=== PATIENT | female | born 1950 | race American Indian/Alaskan Native ===

== ENCOUNTER 2019-03-29 13:05 | Outpatient (CLI) | payer MEDICARE ==
--- NOTE | 2019-03-29 16:31 | Mammography Report ---
STEREOTACTIC NEEDLE BIOPSY WITH CLIP PLACEMENT LEFT BREAST INDICATION: LEFT BREAST CALCIFICATIONS. History of right breast cancer. COMPARISON: Recent ELISABET mammogram. FINDINGS: A timeout was called and informed consent was obtained. The skin was marked. The patient was placed p maura on the stereotactic biopsy table and the skin was cleansed with betadine. Using stereotactic guidance, sterile technique and 1% lidocaine for skin anesthesia and 2% lidocaine with epinephrine for deep anesthesia, 8-gauge Mammotome vacuum-assisted biopsy was performed from a C C from below approach. Samples were obtained around the clock face several times but only on tiny harshad cification was identified on specimen radiograph. There was moderate hemorrhage (50 cc) during the pr ocedure and a moderate size hematoma was observed when retargeting was performed.. A localizer clip w as placed at the biopsy site and the probe was removed. Hemostasis was achieved with pressure to the site and a an Ajay bandage wrap were applied. The patient tolerated the procedure well. A post procedure mammogram demonstrated removal of some of the calcifications. She left the [facility] in good condition with a cold pack applied to the biopsy site and she was given instructions for [facility] care and follow-up. IMPRESSION: 1. Left stereotactic breast biopsy with minimal calcifications obtained. Signer Name: Girish Coffman MD Signed: 03/29/2019 4:27 PM Workstation Name: [id number]
== END 2019-03-29 13:06 | disposition home or self-care (01) ==
LOC: SPVWC 13:05
PROVIDERS: ATTEND Surgery
DX: R92.1 Mammographic calcification found on diagnostic imaging of breast (principal); R92.8 Other abnormal and inconclusive findings on diagnostic imaging of breast; Z85.3 Personal history of malignant neoplasm of breast
CPT/HCPCS: 19081; 88305; 88341; 88342; A4648

== ENCOUNTER 2019-04-19 11:03 | Outpatient (CLI) | payer MEDICARE ==
--- NOTE | 2019-04-19 14:02 | Magnetic Resonance Report ---
Breast MRI INDICATION: Recently diagnosed left breast DCIS. Patient is status post right mastectomy. COMPARISON: 03/29/2019, 02/26/2019, 02/24/2018. FINDINGS: Multiplanar multisequence MR images of the left breast were obtained before and after the i ntravenous administration of 19 mL of MultiHance contrast agent. Imaging post processing and analysis was performed on a separate computer workstation. Patient is status post right mastectomy. No abnormal enhancement is identified within the right chest . LEFT BREAST: There is a 4 x 3.9 x 6.1 cm hematoma within the slightly inferior left central breast. T his is at the site of recent stereotactic biopsy which reportedly revealed DCIS. Of note, a few resid ual calcifications can be noted anterior to the biopsy marker on the post procedure mammogram. There is mild rim enhancement surrounding the hematoma which is consistent with postbiopsy changes. No thic k nodular enhancement or other abnormal enhancement to suggest additional sites of malignancy. No abnormal axillary or internal mammary lymph nodes. A port is noted within the left superior medial chest. IMPRESSION: There is a 6.1 cm hematoma within the left slightly inferior central breast at the site of recent barbara reotactic biopsy which revealed DCIS. No additional sites of enhancement to suggest the presence of f urther extent of disease within the left breast. Of note, a few residual calcifications slightly ante rior to the biopsy marker can be seen on the poststereotactic biopsy images and these would serve as a good target for mammographic localization should lumpectomy be considered. BIRADS 6: Known biopsy proven malignancy. Signer Name: Alex Miller MD Signed: 04/19/2019 1:58 PM Workstation Name: [id number]
== END 2019-04-19 11:04 | disposition home or self-care (01) ==
LOC: SPVIMAG 11:03
PROVIDERS: ATTEND Surgery
DX: C50.412 Malignant neoplasm of upper-outer quadrant of left female breast (principal); N64.89 Other specified disorders of breast
CPT/HCPCS: A9577; C8908; 77049

== ENCOUNTER 2019-06-11 06:10 | Day surgery (SDC) | payer MEDICARE ==
[~2019-06-11 06:10] MED LIST: ceFAZolin/Water 2 GM/20 ML 2 GM/20 ML SYRINGE IV NR
[2019-06-11] MEDS ORDERED: LIDOCAINE (1%) 10 MG/1 ML VIAL 20 ML MDV ONE (07:39)
--- NOTE | 2019-06-11 07:39 | Anesthesia Day of Surgery ---
Anesthesia Day of Surgery - Day of Surgery Patient Examined: Yes Patient H&P Reviewed: Yes Patient is NPO: Yes
--- NOTE | 2019-06-11 07:39 | Anesthesia Consultation ---
Anesthesia Consult and Med Hx Date of service: 06/11/19 - Airway Anesthetic Teeth Evaluation: Good ROM Head & Neck: Adequate Mental/Hyoid Distance: Adequate Mallampati Class: Class II Intubation Access Assessment: Good - Pulmonary Exam CTA: Yes - Cardiac Exam Cardiac Exam: RRR - Pre-Operative Health Status ASA Pre-Surgery Classification: ASA3 Proposed Anesthetic Plan: General - Pulmonary Hx Smoking: Yes (FROM AGE 18-33) Hx Sleep Apnea: (HIGH RISK) - Cardiovascular System Hx Hypertension: Yes (OVER 20YRS) - Central Nervous System Hx Psychiatric Problems: No - Endocrine Hx Hypothyroidism: Yes - Other Systems Hx Alcohol Use: Yes (OCCA WINE) Hx Substance Use: No Hx Cancer: Yes Hx Obesity: Yes (BMI 35)
[2019-06-11] MEDS ORDERED: HYDROmorphone 1 MG/1 ML INJ IV PRN (07:40)
[2019-06-11] MEDS ORDERED: FAMOTIDINE 20 MG TAB PO NR (08:00)
[2019-06-11] MEDS ORDERED: MIDAZOLAM 2 MG/2 ML INJ IV NR (08:00)
[2019-06-11] MEDS ORDERED: LACTATED RINGERS 1,000 ML IV SCH (08:00)
[2019-06-11] MEDS ORDERED: fentaNYL 100 MCG/2 ML INJ ONE ×2 (09:06→11:54)
[2019-06-11] MEDS ORDERED: propofoL 200 MG/20 ML VIAL IV ONE (09:06)
[2019-06-11] MEDS ORDERED: ONDANSETRON 4 MG/2 ML INJ ONE (09:13)
[2019-06-11] MEDS ORDERED: LIDOCAINE PF 100 MG/5 ML (CARDIAC SYRINGE) IV ONE (09:13)
[2019-06-11] MEDS ORDERED: dexAMETHasone 20 MG/5 ML VIAL ONE (09:13)
[2019-06-11] MEDS ORDERED: WATER FOR IRRIG STERILE 1,500 ML BOTTLE IR ONE (09:52)
[2019-06-11] MEDS ORDERED: LIDOCAINE (1%) 10 MG/1 ML VIAL 20 ML MDV INFILTRATI ONE (09:52)
[2019-06-11] MEDS ORDERED: BUPIVACAINE/PF (0.25%) 2.5 MG/ML 30 ML VIAL INFILTRATI ONE (09:52)
--- NOTE | 2019-06-11 12:14 | Operative Report ---
Operative Report Operative Report: June 11, 2019 Preoperative diagnosis: Left breast cancer of the central breast/lower inner quadrant Postoperative diagnosis: Same Procedure: Left needle localization partial mastectomy of the central/lower inner quadrant Surgeon: Vania Georges MD [employer] Research Technician: Dr. Pompa Anesthesia: General Findings: Left wire, microcalcifications and clip present within radiograph specimen Complications: None EBL: Minimal Disposition: PACU in good condition Indications for operative procedure: This is a 68 year old lady with newly diagnosed left breast cancer of central/lower inner quadrant, Stage 0 [id number]. Recommendations were to proceed with breast conservation. She has a personal history of Stage III right breast cancer diagnosed over 15 years ago. She understands the role of adjuvant radiation therapy. She wished to proceed with the above procedure. Procedure in detail: The patient was taken to radiology for wire placement for localization of known area of cancer. Patient was then taken to the operating room. Gen. anesthesia was administered. Left breast and axilla were prepped and draped in the normal sterile operative fashion. The wire was identified. Patient with palpable hematoma from stereotactic biopsy around 6/7:00 position of 3 cm and wire and calcifications medial and posterior. Timeout was performed. Attention was taken towards the left breast. A medial NAC breast incision was made with a 15 blade knife and dissection taken down to subcutaneous tissues. First began raising of the superior flap with removal of the wire that was located posteriorly from the skin with dissection taken down to the pectoralis muscle, followed by raising of the inferior flap, medial flap and lateral flap with all flaps taken down to the pectoralis muscle with area of excision encompassing hematoma. The breast area of concern was appropriately removed posteriorly from the pectoralis muscle with the aid of the Bovie cautery. Generalized oozing from breast tissues was noted. The wire was not encountered. Specimen was marked and then sent to pathology and radiology; radiograph specim en with wire, microcalicifications and clip present. Breast cavity was irrigated and hemostasis was obtained. The posterior deep breast tissues were approximated and closed using interrupted 3-0 Vicryl. The subcutaneous tissues were approximated and closed using interrupted 3-0 Vicryl followed by closing of the skin with a running 4-0 Monocryl and skin affix. The patient tolerated surgery very well and she was awaken from anesthesia without any complication and transported to PACU in good condition.
--- NOTE | 2019-06-11 12:26 | Short Stay Summary ---
Short Stay Documentation Date of service: 06/11/19 - History H&P: obtained from office - Allergies and Medications Current Medications: Allergies sulfamethoxazole [From Bactrim] Allergy (Verified 06/08/19 12:21) Itching trimethoprim [From Bactrim] Allergy (Verified 06/08/19 12:21) Itching Home Medications Medication Instructions Recorded Confirmed Last Taken Type Calcium Carbonate [Calcium 600MG 600 mg PO DAILY 06/08/19 06/08/19 Unknown History TAB] Cyanocobalamin (Vitamin B-12) 500 mcg PO DAILY 06/08/19 06/08/19 Unknown History [Vitamin B-12] Ergocalciferol [Vitamin D2] 1 cap PO QWEEK 06/08/19 06/08/19 Unknown History Levothyroxine Sodium [Synthroid] 175 mcg PO DAILY 06/08/19 06/08/19 Unknown History NIFEdipine [Adalat cc] 90 mg PO DAILY 06/08/19 06/08/19 Unknown History Pravastatin [Pravachol] 40 mg PO QHS 06/08/19 06/08/19 Unknown History HYDROcodone/APAP 5-325 [[place] 1 each PO Q6HR PRN #12 tablet 06/11/19 Unknown Rx 5/325] Active Medications Famotidine (Pepcid) 20 mg PO PREOP NR Stop: 06/11/19 13:00 Hydromorphone HCl (Dilaudid) 0.5 mg IV Q10MIN PRN PRN Reason: Pain , Severe (7-10) Stop: 06/11/19 22:00 Cefazolin Sodium (Ancef/Sterile Water 2 Gm/20 Ml) 2 gm in 20 mls @ 80 mls/hr IV PREOP NR; Protocol Stop: 06/11/19 23:59 Lactated Ringer's (Lactated Ringers) 1,000 mls @ 100 mls/hr IV DIRECT QUIQUE Midazolam HCl (Versed) 2 mg IV PREOP NR Stop: 06/11/19 23:59 - Brief post op/procedure progress note Date of procedure: 06/11/19 Pre-op diagnosis: Left breast cancer Post-op diagnosis: same Procedure: Left needle localization partial mastectomy Anesthesia: GETA Findings: Wire, clip and microcalcifications present Surgeon: ZIA ACKERMAN Estimated blood loss: 50-100ml Pathology: list (partial mastecteomy) Specimen disposition: to lab Condition: stable - Disposition Condition at discharge: Good Disposition: DC-01 TO HOME OR SELFCARE Short Stay Discharge Plan Activity: other (no heavy lifting) Diet: regular Wound: keep clean and dry (may shower in 48 hours) Follow up with: HYUN KANG MD [Primary Care Provider] - 7 Days ZIA ACKERMAN MD [Staff Physician] - 7 Days Prescriptions: HYDROcodone/APAP 5-325 [[place] 5/325] 1 each PO Q6HR PRN #12 tablet PRN Reason: Pain
--- NOTE | 2019-06-11 12:48 | Post Anesthesia Evaluation ---
- Post Anesthesia Evaluation Patient Participated: Yes Airway Patent: Yes Stable Respiratory Function: Yes Nausea/Vomiting: No Temp > 96.8F: Yes Pain Manageable: Yes Adequeate Hydration: Yes Anesthesia Complications: No
--- NOTE | 2019-06-11 13:06 | Mammography Report ---
NEEDLE LOCALIZATION AND HOOKWIRE PLACEMENT LEFT BREAST INDICATION: LT BREAST CANCER. COMPARISON: 03/29/2019 FINDINGS: Consent for the procedure was obtained by Dr. Georges. A timeout was called. Using sterile techniqu e, mammographic guidance and 1% lidocaine for anesthesia, a 12.5 cm Delgado hookwire was placed from a CC from above approach to localize a group of malignant calcifications with a biopsy marker. Satisf actory placement was confirmed with orthogonal views. The hookwire was deployed and the needle was re moved. The patient tolerated the procedure well and there were no apparent complications. She was taken to located within [facility] surgical suite in good condition. IMPRESSION: 1. Uncomplicated and successful hookwire placement left breast.. Signer Name: Girish Coffman MD Signed: 06/11/2019 1:02 PM Workstation Name: [id number]
--- NOTE | 2019-06-11 13:08 | Mammography Report ---
SPECIMEN RADIOGRAPH LEFT BREAST INDICATION: POST EXC BX. . Left breast cancer. COMPARISON: 03/29/2019 and today's localization images. FINDINGS: The targeted calcifications along with a localizer clip and a hookwire are identified within the spec imen. IMPRESSION: 1. Excision of the targeted lesion.. Signer Name: Girish Coffman MD Signed: 06/11/2019 1:04 PM Workstation Name: [id number]
[2019-06-11 18:53] VITALS: BP 162/72
== END 2019-06-11 06:11 | disposition home or self-care (01) ==
LOC: OR 06:10
PROVIDERS: ATTEND Surgery
DX: C50.312 Malignant neoplasm of lower-inner quadrant of left female breast (principal); E03.9 Hypothyroidism, unspecified; E66.9 Obesity, unspecified; Z98.41 Cataract extraction status, right eye; Z98.42 Cataract extraction status, left eye; E78.00 Pure hypercholesterolemia, unspecified; I10 Essential (primary) hypertension; G47.30 Sleep apnea, unspecified; Z79.899 Other long term (current) drug therapy; Z80.3 Family history of malignant neoplasm of breast; Z90.710 Acquired absence of both cervix and uterus; Z90.11 Acquired absence of right breast and nipple; Z98.890 Other specified postprocedural states; Z98.891 History of uterine scar from previous surgery; Z87.442 Personal history of urinary calculi; Z72.89 Other problems related to lifestyle; Z80.0 Family history of malignant neoplasm of digestive organs; Z88.8 Allergy status to other drugs, medicaments and biological substances
CPT/HCPCS: 19281; 19301; 76098; 82962; 88307; 88341; 88342; J0690; J1100; J2001; J2250; J2405; J2704; J3010; J7120

== ENCOUNTER 2019-08-22 08:11 | Inpatient (IN) | payer MEDICARE ==
[2019-08-20 12:12] LABS: Basophils # (Auto) 0.1 K/mm3 (0.0-0.1); Basophils % (Auto) 0.9 % (0.0-1.8); Eosinophils # (Auto) 0.1 K/mm3 (0.0-0.4); Eosinophils % (Auto) 1.1 % (0.0-4.3); Hematocrit 36.4 % (30.3-42.9); Hemoglobin 12.3 gm/dl (10.1-14.3); Lymphocytes # (Auto) 3.2 K/mm3 (1.2-5.4); Lymphocytes % (Auto) 42.6 % (13.4-35.0); Mean Corpuscular HGB Conc 34 % (30-34); Mean Corpuscular Volume 90 fl (79-97); Monocytes # (Auto) 0.6 K/mm3 (0.0-0.8); Monocytes % (Auto) 8.3 % (0.0-7.3); Platelet Count 228 K/mm3 (140-440); Red Blood Count 4.06 M/mm3 (3.65-5.03); Red Cell Distribution Width 14.3 % (13.2-15.2)
[2019-08-20 12:35] LABS: BUN/Creatinine Ratio 33; Blood Urea Nitrogen 20 mg/dL (7-17); Calcium 9.6 mg/dL (8.4-10.2); Hemolysis Index 10
[~2019-08-22 08:11] MED LIST changes: +GABAPENTIN 300 MG CAP PO NR; +MAGNESIUM OXIDE 400 MG TAB PO SCH; +WATER FOR IRRIG STERILE 1,500 ML BOTTLE IR ONE; +fentaNYL 100 MCG/2 ML INJ IV PRN
[2019-08-22] MEDS ORDERED: fentaNYL 100 MCG/2 ML INJ IV PRN (09:06)
--- NOTE | 2019-08-22 09:17 | Anesthesia Day of Surgery ---
Anesthesia Day of Surgery - Day of Surgery Patient Examined: Yes Patient H&P Reviewed: Yes Patient is NPO: Yes
--- NOTE | 2019-08-22 09:17 | Anesthesia Consultation ---
Anesthesia Consult and Med Hx Date of service: 08/22/19 - Airway Anesthetic Teeth Evaluation: Good ROM Head & Neck: Adequate Mental/Hyoid Distance: Adequate Mallampati Class: Class II Intubation Access Assessment: Probably Good (previous LMA 4) - Pulmonary Exam CTA: Yes - Cardiac Exam Cardiac Exam: RRR - Pre-Operative Health Status ASA Pre-Surgery Classification: ASA3 Proposed Anesthetic Plan: General Nerve Block: PEC - Pulmonary Hx Smoking: Yes (quit 40yrs ago) Hx Respiratory Symptoms: No Hx Sleep Apnea: (HIGH RISK) - Cardiovascular System Hx Hypertension: Yes (took antihypertensives this morning) Hx Heart Attack/AMI: No Hx Percutaneous Transluminal Coronary Angioplasty (PTCA): No - Central Nervous System CVA: No - Gastrointestinal Hx Gastroesophageal Reflux Disease: No - Endocrine Hx Renal Disease: No Hx Liver Disease: No Hx Non-Insulin Dependent Diabetes: Yes (diet controlled) Hx Hypothyroidism: Yes - Other Systems Hx Alcohol Use: Yes (OCCA WINE) Hx Substance Use: No Hx Cancer: Yes (breast ca) Hx Obesity: Yes (BMI 31) - Additional Comments Anesthesia Medical History Comments: No hx anesthetic complications.
[2019-08-22] MEDS: LACTATED RINGERS 1,000 ML IV SCH ×2 (09:25→23:19)
[2019-08-22] MEDS: MIDAZOLAM 2 MG/2 ML INJ IV NR ×2 (09:26→10:36)
[2019-08-22] MEDS ORDERED: dexAMETHasone 4 MG/ML VIAL ONE (09:36)
[2019-08-22] MEDS ORDERED: BUPIVACAINE/PF (0.5%) 5 MG/1 ML 30 ML VIAL INFILTRATI ONE (09:37)
[2019-08-22] MEDS ORDERED: METHYLENE BLUE 50 MG/10 ML AMP ONE (11:04)
[2019-08-22] MEDS ORDERED: SODIUM CHLORIDE P/F VIAL 10 ML 10 ML ONE (11:05)
[2019-08-22] MEDS ORDERED: HYDROmorphone 1 MG/1 ML INJ ONE ×2 (11:14→13:28)
[2019-08-22] MEDS ORDERED: NEOSTIGMINE 10MG/10 ML INJ MDV ONE (11:14)
[2019-08-22] MEDS ORDERED: ROCURONIUM 50 MG/5 ML INJ IV ONE (11:14)
[2019-08-22] MEDS ORDERED: PHENYLEPHRINE/NS 1,000 MCG/10 ML SYRINGE (OR USE) IV ONE (11:14)
[2019-08-22] MEDS ORDERED: SUCCINYLCHOLINE CHLORIDE 200 MG/10 ML INJ MDV ONE (11:14)
[2019-08-22] MEDS ORDERED: ONDANSETRON 4 MG/2 ML INJ ONE (11:14)
[2019-08-22] MEDS ORDERED: LIDOCAINE MPF (2%) 20 MG/1 ML VIAL 5 ML ONE (11:14)
[2019-08-22] MEDS ORDERED: GLYCOPYRROLATE 0.4 MG/2 ML INJ ONE (11:14)
[2019-08-22] MEDS ORDERED: fentaNYL 100 MCG/2 ML INJ ONE (11:14)
[2019-08-22] MEDS ORDERED: propofoL 200 MG/20 ML VIAL IV ONE (11:15)
[2019-08-22] MEDS ORDERED: ePHEDrine SULFATE 50 MG/1 ML INJ ONE (11:15)
[2019-08-22] MEDS ORDERED: SODIUM CHLORIDE 0.9% P/F 10 ML VIAL INFILTRATI ONE (11:27)
[2019-08-22] MEDS ORDERED: METHYLENE BLUE 50 MG/10 ML AMP IRRIGATION ONE (11:27)
[2019-08-22] MEDS ORDERED: WATER FOR IRRIG STERILE 1,500 ML BOTTLE IR ONE (14:14)
--- NOTE | 2019-08-22 14:57 | Operative Report ---
Operative Report Operative Report: Operative Report: Date of Service: August 22, 2019 Preoperative diagnosis: Left central breast cancer Postoperative diagnosis: Same Procedure: Left total mastectomy with sentinel lymph node biopsy Surgeon: Vania Georges M.D. Auto Wash Buffer: Aldo Mason M.D. Anesthesia: Gen. Findings: Left total mastectomy; x4 sentinel lymph node identified and negative for malignancy on frozen section of pathology Complications: None Drains: One 19 Upper [place] PROMISE drains bilaterally Estimated blood loss: 200-250 cc Disposition: PACU in good condition Indications for operative procedure: This is a 69-year-old lady with recently diagnosed Stage 0 left breast cancer of the central breast, ER positive. She recently underwent left partial mastectomy with final pathology of extensive DCIS. Recommendations were to proceed with a left total mastectomy versus margin revision. She wished to proceed with a left total mastectomy. She understood the role of SLNB. She has a personal history of right breast cancer Stage III diagnosed in 1995 and she underwent a right MRM and later a BMT. She declined plastic surgery. She wished to proceed with the above procedure. Procedure in detail: The patient was taken to the operating room and was placed supine. Gen. anesthesia was administered. The left nipple was injected with radioisotope and 1 cc of methylene blue. Left NAC incision at 9:00 position well healed. Left breast and axilla was prepped and draped in the normal sterile operative fashion. Timeout was performed. Typical mastectomy incision marking was made. Attention was taken towards the left breast. A gamma probe was inserted into the axilla to identify the sentinel lymph node location with uptake noted. A skin incision was made with a 10 blade knife and dissection taken down to the subcutaneous tissues. First began raising of the superior flap to the level of the clavicle superiorly and posteriorly to the pectoralis muscle; superior flap limited mid portion given port. Followed by raising of the medial flap to the level of the sternum and posteriorly to the pectoralis muscle. Followed by raising of the lateral flap to the level of the latissimus dorsi muscle and taken down posteriorly. The gamma probe was inserted into the axilla, the axillary fascia was opened and 4 SLNS were identified that were dissected free and sent to pathology. All SLNs sent to pathology with findings negative for malignancy on frozen section. Then proceeded with raising of the inferior flap to the level of the inframammary fold taken posterior to the pectoralis muscle. Prior lumpectomy site was noted and seroma was drained. The mastectomy/breast was removed from the pectoralis muscle without incident. Patient was noted for generalized oozing throughout surgery but hemostasis was obtained. The specimen was appropriately marked and sent to pathology. Hemostasis was obtained. The chest wall cavity was irrigated. A 19 Upper [place] PROMISE drain was placed. The subcutaneous tissues were approximated and close using interrupted 3-0 Vicryl and the skin closed using 4-0 running Monocryl followed by dermabond. She tolerated surgery very well and was awaken from anesthesia without any complications and transported to PACU in good condition.
[2019-08-22] MEDS ORDERED: ONDANSETRON 4 MG/2 ML INJ IV PRN (14:59)
[2019-08-22] MEDS ORDERED: METOCLOPRAMIDE 10 MG TAB PO PRN (14:59)
[2019-08-22] MEDS ORDERED: diphenhydrAMINE 25 MG CAP PO PRN (14:59)
[2019-08-22] MEDS ORDERED: oxyCODONE /ACETAMINOPHEN 5-325MG TAB PO PRN (14:59)
[2019-08-22] MEDS ORDERED: ACETAMINOPHEN 325 MG TAB PO PRN (14:59)
--- NOTE | 2019-08-22 14:59 | Short Stay Summary ---
Short Stay Documentation Date of service: 08/22/19 - History H&P: obtained from office - Allergies and Medications Current Medications: Allergies sulfamethoxazole [From Bactrim] Allergy (Verified 08/15/19 09:48) Itching trimethoprim [From Bactrim] Allergy (Verified 08/15/19 09:48) Itching Home Medications Medication Instructions Recorded Confirmed Last Taken Type Calcium Carbonate [Calcium 600MG 600 mg PO DAILY 06/08/19 08/15/19 08/21/19 History TAB] Cyanocobalamin (Vitamin B-12) 500 mcg PO DAILY 06/08/19 08/15/19 08/21/19 History [Vitamin B-12] Ergocalciferol [Vitamin D2] 1 cap PO QWEEK 06/08/19 08/22/19 08/16/19 History Levothyroxine Sodium [Synthroid] 175 mcg PO DAILY 06/08/19 08/15/19 08/22/19 07:00 History NIFEdipine [Adalat cc] 90 mg PO DAILY 06/08/19 08/15/19 08/22/19 07:00 History Pravastatin [Pravachol] 40 mg PO QHS 06/08/19 08/15/19 08/21/19 History Anastrozole [Arimidex] 1 mg PO DAILY 08/15/19 08/15/19 08/21/19 History Active Medications Fentanyl (Sublimaze) 100 mcg IV ONCE PRN PRN Reason: sedation for nerve block Last Admin: 08/22/19 10:36 Dose: 50 mcg Documented by: Fentanyl (Sublimaze) 50 mcg IV Q5MIN PRN PRN Reason: Pain , Severe (7-10) Stop: 08/22/19 23:00 Gabapentin (Gabapentin) 300 mg PO PREOP NR Stop: 08/22/19 23:59 Last Admin: 08/22/19 09:00 Dose: 300 mg Documented by: Cefazolin Sodium (Ancef/Sterile Water 2 Gm/20 Ml) 2 gm in 20 mls @ 80 mls/hr IV PREOP NR; Protocol Stop: 08/22/19 23:00 Lactated Ringer's (Lactated Ringers) 1,000 mls @ 100 mls/hr IV DIRECT QUIQUE Stop: 08/22/19 23:59 Last Admin: 08/22/19 09:25 Dose: 100 mls/hr Documented by: Magnesium Oxide (Mag-Ox) 400 mg PO PREOP QUIQUE Last Admin: 08/22/19 09:00 Dose: 400 mg Documented by: Midazolam HCl (Versed) 2 mg IV PREOP NR Stop: 08/22/19 23:59 Last Admin: 08/22/19 10:36 Dose: 1 mg Documented by: - Brief post op/procedure progress note Date of procedure: 08/22/19 Pre-op diagnosis: Central left breast cancer Post-op diagnosis: same Procedure: Left total mastectomy with SLNB Anesthesia: GETA Findings: Left mastectomy; x4 SLNs and negative for malignancy on frozen section Surgeon: ZIA ACKERMAN Mix Chemist: PATTI GARCIA Estimated blood loss: other (250 cc) Pathology: list (left mastectomy; x4 SLNs) Specimen disposition: to lab Condition: stable - Disposition Condition at discharge: Good Disposition: DC/TX-02 SHRT-TRM GEN HOSP IP Short Stay Discharge Plan Activity: other (no heavy lifting) Diet: regular Wound: keep clean and dry (no baths; wear breast binder) Follow up with: HYUN KANG MD [Primary Care Provider] - 7 Days ZIA ACKERMAN MD [Staff Physician] - 7 Days
[2019-08-22] MEDS ORDERED: LACTATED RINGERS 1,000 ML IV SCH (15:00)
--- NOTE | 2019-08-22 17:00 | Post Anesthesia Evaluation ---
- Post Anesthesia Evaluation Patient Participated: Yes Airway Patent: Yes Stable Respiratory Function: Yes Nausea/Vomiting: No Temp > 96.8F: Yes Pain Manageable: Yes Adequeate Hydration: Yes Anesthesia Complications: No Other Comments: OK for transfer to floor with continuous pulse ox and MARI protocol.
[2019-08-22] MEDS: DOCUSATE SODIUM 100 MG CAP PO SCH (23:19)
[2019-08-22] MEDS: MORPHINE 2 MG/1 ML INJ IV PRN (23:22)
[2019-08-23] MEDS: MORPHINE 2 MG/1 ML INJ IV PRN (03:13)
[2019-08-23] MEDS ORDERED: SODIUM CHLORIDE 0.9% 1000 ML 1,000 ML ONE ×3 (05:36→12:00)
[2019-08-23] MEDS ORDERED: SODIUM CHLORIDE 0.9% 1000 ML 1,000 ML IV ONE (06:32)
[2019-08-23 06:42] LABS: Basophils % (Auto) 0.3 % (0.0-1.8); Eosinophils % (Auto) 0.6 % (0.0-4.3); Hematocrit 22.4 % (30.3-42.9); Hemoglobin 7.5 gm/dl (10.1-14.3); Lymphocytes # (Auto) 1.9 K/mm3 (1.2-5.4); Lymphocytes % (Auto) 27.6 % (13.4-35.0); Mean Corpuscular HGB Conc 33 % (30-34); Mean Corpuscular Volume 92 fl (79-97); Monocytes # (Auto) 0.9 K/mm3 (0.0-0.8); Monocytes % (Auto) 13.3 % (0.0-7.3); Platelet Count 176 K/mm3 (140-440); Red Blood Count 2.45 M/mm3 (3.65-5.03); Red Cell Distribution Width 13.9 % (13.2-15.2)
[2019-08-23 06:59] LABS: Alanine Aminotransferase 12 units/L (7-56); Albumin 2.9 g/dL (3.9-5); BUN/Creatinine Ratio 27; Blood Urea Nitrogen 19 mg/dL (7-17); Calcium 8.1 mg/dL (8.4-10.2); Hemolysis Index 4
[2019-08-23] MEDS ORDERED: SODIUM CHLORIDE 0.9% 500 ML 500 ML IV NR (07:52)
[2019-08-23 08:00] LABS: Basophils % (Auto) 0.3 % (0.0-1.8); Eosinophils % (Auto) 0.6 % (0.0-4.3); Hematocrit 22.6 % (30.3-42.9); Hemoglobin 7.6 gm/dl (10.1-14.3); Lymphocytes # (Auto) 1.3 K/mm3 (1.2-5.4); Lymphocytes % (Auto) 23.1 % (13.4-35.0); Mean Corpuscular HGB Conc 34 % (30-34); Mean Corpuscular Volume 92 fl (79-97); Monocytes # (Auto) 0.8 K/mm3 (0.0-0.8); Monocytes % (Auto) 13.2 % (0.0-7.3); Platelet Count 169 K/mm3 (140-440); Red Blood Count 2.46 M/mm3 (3.65-5.03); Red Cell Distribution Width 14.2 % (13.2-15.2)
[2019-08-23] MEDS ORDERED: ONDANSETRON 4 MG/2 ML INJ ONE (08:07)
[2019-08-23] MEDS ORDERED: SUCCINYLCHOLINE CHLORIDE 200 MG/10 ML INJ MDV ONE (08:07)
[2019-08-23] MEDS ORDERED: LIDOCAINE MPF (2%) 20 MG/1 ML VIAL 5 ML ONE (08:07)
[2019-08-23] MEDS ORDERED: PHENYLEPHRINE/NS 1,000 MCG/10 ML SYRINGE (OR USE) IV ONE (08:07)
[2019-08-23] MEDS ORDERED: propofoL 200 MG/20 ML VIAL IV ONE (08:08)
[2019-08-23] MEDS ORDERED: HYDROmorphone 1 MG/1 ML INJ ONE (08:08)
[2019-08-23] MEDS ORDERED: fentaNYL 100 MCG/2 ML INJ ONE (08:08)
[2019-08-23] MEDS ORDERED: ePHEDrine SULFATE 50 MG/1 ML INJ ONE (08:10)
--- NOTE | 2019-08-23 08:15 | Progress Note ---
Assessment and Plan This is a 69 year old lady POD#1 left total mastectomy with SLNB. Patient hypotensive overnight with appropriated response to IVFs. h/h low this am and physical exam with left chest fluid wave. Patient consented for left chest wall hematoma evacuation this am. Subjective Date of service: 08/23/19 Principal diagnosis: Left breast cancer Interval history: POD#1 left mastectomy wtih SLNB. Overnight patient hypotensive and thought secondary to morpine with bp 80/30 and she was given IVFs with appropriate response. Patient has been normaltensize and regular heart rate postoperative. This am left chest upon examination with concerns of fluid wave and recommendations for left chest wall hematoma evacuation. PROMISE drain with no active bleeding, output 400 cc since surgery and more serosangious. Hemoglovin 7.5 this am. Patient reported she did not stop taking her daily vitamins prior to surgery. She was noted for generalize oozing during surgery. Objective - Constitutional Vitals: Vital Signs - 12hr 08/22/19 08/22/19 08/22/19 20:32 22:20 23:24 Temperature 97.8 F Pulse Rate 76 81 Respiratory 91 H Rate Blood Pressure 194/76 Blood Pressure 166/62 [Left] O2 Sat by Pulse 98 100 Oximetry 08/23/19 08/23/19 05:15 07:48 Temperature 98.0 F 98.4 F Pulse Rate 87 79 Respiratory 18 17 Rate Blood Pressure 115/48 Blood Pressure 156/54 [Left] O2 Sat by Pulse 97 99 Oximetry General appearance: Present: no acute distress - EENT Eyes: PERRL, EOM intact ENT: hearing intact, clear oral mucosa Ears: bilateral: normal - Neck Neck: supple, normal ROM - Respiratory Respiratory effort: normal - Breasts Breasts: other (left chest incision c/d/i; fluid wave present of left chest, PROMISE drain with no active bleeding) Extremities: no ischemia, pulses intact, pulses symmetrical, No edema, normal temperature, normal color, Full ROM - Gastrointestinal General gastrointestinal: Present: soft, non-tender, non-distended - Genitourinary Female genitourinary: deferred - Integumentary Integumentary: clear, warm, dry - Musculoskeletal Musculoskeletal: strength equal bilaterally - Neurologic Neurologic: CNII-XII intact, moves all extremities - Psychiatric Psychiatric: appropriate mood/affect, intact judgment & insight, memory intact, cooperative - Labs CBC & Chem 7: 08/23/19 07:48 08/23/19 06:34 Labs: Abnormal lab results 08/22/19 08/22/19 08/23/19 Range/Units 09:44 15:29 05:47 RBC (3.65-5.03) M/mm3 Hgb (10.1-14.3) gm/dl Hct (30.3-42.9) % [place] % (Auto) (0.0-7.3) % [place] # (0.0-0.8) K/mm3 BUN (7-17) mg/dL Glucose (65-100) mg/dL POC Glucose 142 H 166 H 153 H (70-105) Calcium (8.4-10.2) mg/dL Total Protein (6.3-8.2) g/dL Albumin (3.9-5) g/dL 08/23/19 08/23/19 08/23/19 Range/Units 06:34 06:34 07:48 RBC 2.45 L 2.46 L (3.65-5.03) M/mm3 Hgb 7.5 L D 7.6 L (10.1-14.3) gm/dl Hct 22.4 L D 22.6 L (30.3-42.9) % [place] % (Auto) 13.3 H 13.2 H (0.0-7.3) % [place] # 0.9 H (0.0-0.8) K/mm3 BUN 19 H (7-17) mg/dL Glucose 151 H (65-100) mg/dL POC Glucose (70-105) Calcium 8.1 L D (8.4-10.2) mg/dL Total Protein 5.0 L (6.3-8.2) g/dL Albumin 2.9 L (3.9-5) g/dL Medications & Allergies - Medications Allergies/Adverse Reactions: Allergies sulfamethoxazole [From Bactrim] Allergy (Verified 08/15/19 09:48) Itching trimethoprim [From Bactrim] Allergy (Verified 08/15/19 09:48) Itching Home Medications: Home Medications Medication Instructions Recorded Confirmed Last Taken Type Calcium Carbonate [Calcium 600MG 600 mg PO DAILY 06/08/19 08/15/19 08/21/19 History TAB] Cyanocobalamin (Vitamin B-12) 500 mcg PO DAILY 06/08/19 08/15/19 08/21/19 History [Vitamin B-12] Ergocalciferol [Vitamin D2] 1 cap PO QWEEK 06/08/19 08/22/19 08/16/19 History Levothyroxine Sodium [Synthroid] 175 mcg PO DAILY 06/08/19 08/15/19 08/22/19 07:00 History NIFEdipine [Adalat cc] 90 mg PO DAILY 06/08/19 08/15/19 08/22/19 07:00 History Pravastatin [Pravachol] 40 mg PO QHS 06/08/19 08/15/19 08/21/19 History Anastrozole [Arimidex] 1 mg PO DAILY 08/15/19 08/15/19 08/21/19 History Active Medications: Generic Name Dose Route Start Last Admin Trade Name Freq PRN Reason Stop Dose Admin Acetaminophen 650 mg 08/22/19 14:59 Tylenol PO Q6H PRN Pain MILD(1-3)/Fever >100.5/BREWER Diphenhydramine HCl 25 mg 08/22/19 14:59 Benadryl PO Q8H PRN Itching Docusate Sodium 100 mg 08/22/19 22:00 08/22/19 23:19 Colace PO 100 mg BID QUIQUE Administration Fentanyl 100 mcg 08/22/19 06:00 08/22/19 10:36 Sublimaze IV 50 mcg ONCE PRN Administration sedation for nerve block Lactated Ringer's 1,000 mls @ 125 mls/hr 08/22/19 15:00 Lactated Ringers IV DIRECT QUIQUE Sodium Chloride 500 mls @ 0 mls/hr 08/23/19 07:52 Nacl 0.9% 500 Ml IV 08/24/19 07:51 ONCE NR As Directed Magnesium Oxide 400 mg 08/22/19 06:00 08/22/19 09:00 Mag-Ox PO 400 mg PREOP QUIQUE Administration Metoclopramide HCl 10 mg 08/22/19 14:59 Reglan PO Q6H PRN Nausea And Vomiting Morphine Sulfate 2 mg 08/22/19 15:05 08/23/19 03:13 Morphine IV 2 mg Q4H PRN Administration Pain, Moderate (4-6) Ondansetron HCl 4 mg 08/22/19 14:59 Zofran IV Q8H PRN N/V unrelieved by Katy Oxycodone/Acetaminophen 2 tab 08/22/19 14:59 Percocet 5/325 PO Q6H PRN Pain, Moderate (4-6) Sodium Chloride 10 ml 08/22/19 14:59 Sodium Chloride Flush Syringe 10 Ml IV PRN PRN LINE FLUSH
[2019-08-23] MEDS ORDERED: WATER FOR IRRIG STERILE 1,500 ML BOTTLE IR ONE ×2 (08:43)
--- NOTE | 2019-08-23 10:53 | Short Stay Summary ---
Short Stay Documentation Date of service: 08/23/19 - History H&P: obtained from office - Allergies and Medications Current Medications: Allergies sulfamethoxazole [From Bactrim] Allergy (Verified 08/15/19 09:48) Itching trimethoprim [From Bactrim] Allergy (Verified 08/15/19 09:48) Itching Home Medications Medication Instructions Recorded Confirmed Last Taken Type Calcium Carbonate [Calcium 600MG 600 mg PO DAILY 06/08/19 08/15/19 08/21/19 History TAB] Cyanocobalamin (Vitamin B-12) 500 mcg PO DAILY 06/08/19 08/15/19 08/21/19 History [Vitamin B-12] Ergocalciferol [Vitamin D2] 1 cap PO QWEEK 06/08/19 08/22/19 08/16/19 History Levothyroxine Sodium [Synthroid] 175 mcg PO DAILY 06/08/19 08/15/19 08/22/19 07:00 History NIFEdipine [Adalat cc] 90 mg PO DAILY 06/08/19 08/15/19 08/22/19 07:00 History Pravastatin [Pravachol] 40 mg PO QHS 06/08/19 08/15/19 08/21/19 History Anastrozole [Arimidex] 1 mg PO DAILY 08/15/19 08/15/19 08/21/19 History Active Medications Acetaminophen (Tylenol) 650 mg PO Q6H PRN PRN Reason: Pain MILD(1-3)/Fever >100.5/BREWER Diphenhydramine HCl (Benadryl) 25 mg PO Q8H PRN PRN Reason: Itching Docusate Sodium (Colace) 100 mg PO BID [facility] Last Admin: 08/22/19 23:19 Dose: 100 mg Documented by: Fentanyl (Sublimaze) 100 mcg IV ONCE PRN PRN Reason: sedation for nerve block Last Admin: 08/22/19 10:36 Dose: 50 mcg Documented by: Lactated Ringer's (Lactated Ringers) 1,000 mls @ 125 mls/hr IV DIRECT QUIQUE Sodium Chloride (Nacl 0.9% 500 Ml) 500 mls @ 0 mls/hr IV ONCE NR Stop: 08/24/19 07:51 Metoclopramide HCl (Reglan) 10 mg PO Q6H PRN PRN Reason: Nausea And Vomiting Morphine Sulfate (Morphine) 2 mg IV Q4H PRN PRN Reason: Pain, Moderate (4-6) Last Admin: 08/23/19 03:13 Dose: 2 mg Documented by: Ondansetron HCl (Zofran) 4 mg IV Q8H PRN PRN Reason: N/V unrelieved by Reglan Oxycodone/Acetaminophen (Percocet 5/325) 2 tab PO Q6H PRN PRN Reason: Pain, Moderate (4-6) Sodium Chloride (Sodium Chloride Flush Syringe 10 Ml) 10 ml IV PRN PRN PRN Reason: LINE FLUSH - Physical exam Breasts: other (left chest incision c/d/i; fluid wave present of left chest, PROMISE drain with no active bleeding) Extremities: no ischemia, pulses intact, pulses symmetrical, No edema, normal temperature, normal color, Full ROM - Brief post op/procedure progress note Date of procedure: 08/23/19 Pre-op diagnosis: Left chest wall hematoma Post-op diagnosis: same Procedure: Left chest wall hematoma evacuation Anesthesia: GETA Findings: Left chest wall hematoma evacuation of 300-500 cc of clot Surgeon: ZIA ACKERMAN Estimated blood loss: other (left chest wall hematoma evacuation 300-500cc) Pathology: none Specimen disposition: to lab Condition: stable - Disposition Disposition: [id number]/TX-02 SHRT-TRM GEN HOSP IP Short Stay Discharge Plan Activity: other (no heavy lifting) Diet: regular Wound: keep clean and dry (wear breast binder) Follow up with: ZIA ACKERMAN MD [Staff Physician] - 7 Days HYUN KANG MD [Primary Care Provider] - 7 Days
--- NOTE | 2019-08-23 12:04 | Operative Report ---
Operative Report Operative Report: Operative Report: Date of Service: August 23, 2019 Preoperative diagnosis: Left chest wall hematoma Postoperative diagnosis: Same Procedure: Left chest wall hematoma evacuation Surgeon: Vania Georges M.D. Anesthesia: Gen. Findings: Left chest wall hematoma evaucation of 400-500 cc Complications: None Drains: Two 19 [place] PROMISE drains Estimated blood loss: Hematoma evaucation of 400-500 cc Disposition: PACU in good condition Indications for operative procedure: This is a 69-year-old lady with recently diagnosed Stage 0 left breast cancer of the central breast, ER positive. She recently underwent left partial mastectomy with final pathology of extensive DCIS. Recommendations were to proceed with a left total mastectomy versus margin revision. She wished to proceed with a left total mastectomy. On 08/22/2019 she underwent a left total mastectomy. This morning she noted to have left chest wall fluid wave and recommendations were to go to the OR for left chest wall hematoma. Hemoglobin dropped from 12 to 7 as well. She has a personal history of right breast cancer Stage III diagnosed in 1995 and she underwent a right MRM and later a BMT. She declined plastic surgery. She wished to proceed with the above procedure. Procedure in detail: The patient was taken to the operating room and was placed supine. Gen. anesthesia was administered. Left breast and axilla was prepped and draped in the normal sterile operative fashion. Timeout was performed. Mastectomy incision was opened using Metzenbaum scissors. Chest wall hematoma was present that was evacuated. Hematoma was noted of 400 to 500 cc. Generalized oozing was noted throughout the entire left chest. Chest wall was then irrigated and suctioned with sterile water. Then proceeded with obtaining hemostasis throughout the left chest wall cavity. Hemostasis was obtained using the bovie cautery and 3-0 stick ties with Vicryl. No active bleeding was present-hemostasis was obtained. Chest wall was irrigated as well with hemostasis noted. Ash was then placed along the pectoralis muscle, lateral chest wall as well as the axilla. Hemostasis was still noted. Two 19 [place] drains were placed and sutured into place using 2-0 nylon. The subcutaneous tissues were then approximated and closed using interrupted 3-0 Vicryl and the skin was then closed using a running 4-0 Monocryl. 2 units of PRBCs were ordered and available once patient was in PACU. Will speak with Dr. Kenya hdz regarding bleeding disorder workup. Generalized oozing was noted from her surgery from yesterday as well as generalized oozing from today and hemostasis was noted prior to closure yesterday. Patient did report that she did not stop taking her vitamins but given she has had prior bone marrow suppression and has undergone a bone marrow transplant will do further work-up to ensure she does not have a bleeding disorder. She tolerated surgery very well and was awaken from anesthesia without any complications and transported to PACU in good condition.
--- NOTE | 2019-08-23 14:04 | Event Note ---
Date: 08/23/19 POD 1 s/p partial mastectomy scheduled for emergent hematoma evacuation. NPO >6hrs. ASA 3E. Plan GA w/ likely blood transfusion.
--- NOTE | 2019-08-23 14:04 | Anesthesia Day of Surgery ---
Anesthesia Day of Surgery - Day of Surgery Patient Examined: Yes Patient H&P Reviewed: Yes Patient is NPO: Yes
--- NOTE | 2019-08-23 14:04 | Post Anesthesia Evaluation ---
- Post Anesthesia Evaluation Patient Participated: Yes Airway Patent: Yes Stable Respiratory Function: Yes Nausea/Vomiting: No Temp > 96.8F: Yes Pain Manageable: Yes Adequeate Hydration: Yes Anesthesia Complications: No Other Comments: received 2 units pRBCs in PACU.
[2019-08-23] MEDS: DOCUSATE SODIUM 100 MG CAP PO SCH ×2 (15:25→22:08)
[2019-08-23 18:28] LABS: Hematocrit 29.8 % (30.3-42.9); Hemoglobin 10.2 gm/dl (10.1-14.3)
[2019-08-24 06:11] LABS: Hematocrit 26.6 % (30.3-42.9); Hemoglobin 9.1 gm/dl (10.1-14.3)
--- NOTE | 2019-08-24 08:58 | Progress Note ---
Assessment and Plan This is a 69 year old lady with Stage 0 left breast cancer, [id number] ER positive. POD#2 left mastectomy wtih SLNB. Patient taken to OR on 08/23/2019 for left chest wall hematoma evaucation. She was transfused 2 units of PRBCs and 2 drains placed. No acute events overnight. 1. Left chest incision healing well, incision clean, dry and intact; no hematoma; nontender. 2. H/H this am 12/14 from 01/16 after blood transfusion. PROMISE drains serosanginous this am and output stable. Vital signs stable and good UOP. Will repeat H/H at 1700 today. Will start lovenox SQ pending H/H at 1700. 3.Pain in good control. 4. OOB to hallway. 5. D/C planning for tomorrow. Subjective Date of service: 08/24/19 Principal diagnosis: Left breast cancer Interval history: POD#2 left mastectomy wtih SLNB. Patient taken to OR on 08/23/2019 for left chest wall hematoma evaucation. She was transfused 2 units of PRBCs and 2 drains placed. No acute events overnight. Drain output stable. No acute events overnight. Pain in good control. Objective - Constitutional Vitals: Vital Signs - 12hr 08/22/20 08/24/19 08/24/19 23:09 05:17 06:58 Temperature 98.6 F 99.0 F 98.9 F Pulse Rate 95 H 87 88 Respiratory 17 17 18 Rate Blood Pressure 158/67 166/62 157/60 O2 Sat by Pulse 96 93 96 Oximetry General appearance: Present: no acute distress - EENT Eyes: PERRL, EOM intact ENT: hearing intact, clear oral mucosa - Neck Neck: supple, normal ROM - Respiratory Respiratory effort: normal - Breasts Breasts: other (left incision c/d/i; no hematoma; PROMISE drain output serosangious) - Cardiovascular Rhythm: regular Extremities: no ischemia, pulses intact, pulses symmetrical, No edema, normal temperature, normal color, Full ROM - Gastrointestinal General gastrointestinal: Present: soft, non-tender, non-distended - Genitourinary Female genitourinary: deferred - Integumentary Integumentary: clear, warm, dry - Musculoskeletal Musculoskeletal: strength equal bilaterally - Neurologic Neurologic: CNII-XII intact, moves all extremities - Psychiatric Psychiatric: appropriate mood/affect, intact judgment & insight, memory intact, cooperative - Labs CBC & Chem 7: 08/24/19 04:58 08/23/19 06:34 Labs: Abnormal lab results 08/23/19 08/23/19 08/23/19 Range/Units 07:52 11:25 18:29 Hgb (10.1-14.3) gm/dl Hct (30.3-42.9) % POC Glucose 186 H 144 H (70-105) Crossmatch See Detail 08/23/19 08/24/19 Range/Units Unknown 04:58 Hgb 9.1 L (10.1-14.3) gm/dl Hct 29.8 L D 26.6 L (30.3-42.9) % POC Glucose (70-105) Crossmatch Medications & Allergies - Medications Allergies/Adverse Reactions: Allergies sulfamethoxazole [From Bactrim] Allergy (Verified 08/15/19 09:48) Itching trimethoprim [From Bactrim] Allergy (Verified 08/15/19 09:48) Itching Home Medications: Home Medications Medication Instructions Recorded Confirmed Last Taken Type Calcium Carbonate [Calcium 600MG 600 mg PO DAILY 06/08/19 08/15/19 08/21/19 History TAB] Cyanocobalamin (Vitamin B-12) 500 mcg PO DAILY 06/08/19 08/15/19 08/21/19 History [Vitamin B-12] Ergocalciferol [Vitamin D2] 1 cap PO QWEEK 06/08/19 08/22/19 08/16/19 History Levothyroxine Sodium [Synthroid] 175 mcg PO DAILY 06/08/19 08/15/19 08/22/19 07:00 History NIFEdipine [Adalat cc] 90 mg PO DAILY 06/08/19 08/15/19 08/22/19 07:00 History Pravastatin [Pravachol] 40 mg PO QHS 06/08/19 08/15/19 08/21/19 History Anastrozole [Arimidex] 1 mg PO DAILY 08/15/19 08/15/19 08/21/19 History Active Medications: Generic Name Dose Route Start Last Admin Trade Name Freq PRN Reason Stop Dose Admin Acetaminophen 650 mg 08/22/19 14:59 Tylenol PO Q6H PRN Pain MILD(1-3)/Fever >100.5/BREWER Diphenhydramine HCl 25 mg 08/22/19 14:59 Benadryl PO Q8H PRN Itching Docusate Sodium 100 mg 08/22/19 22:00 08/23/19 22:08 Colace PO 100 mg BID QUIQUE Administration Fentanyl 100 mcg 08/22/19 06:00 08/22/19 10:36 Sublimaze IV 50 mcg ONCE PRN Administration sedation for nerve block Metoclopramide HCl 10 mg 08/22/19 14:59 Reglan PO Q6H PRN Nausea And Vomiting Morphine Sulfate 2 mg 08/22/19 15:05 08/23/19 03:13 Morphine IV 2 mg Q4H PRN Administration Pain, Moderate (4-6) Ondansetron HCl 4 mg 08/22/19 14:59 Zofran IV Q8H PRN N/V unrelieved by Reglan Oxycodone/Acetaminophen 2 tab 08/22/19 14:59 Percocet 5/325 PO Q6H PRN Pain, Moderate (4-6) Sodium Chloride 10 ml 08/22/19 14:59 Sodium Chloride Flush Syringe 10 Ml IV PRN PRN LINE FLUSH
[2019-08-24] MEDS: DOCUSATE SODIUM 100 MG CAP PO SCH ×2 (09:16→21:41)
[2019-08-24 17:20] LABS: Hematocrit 28.4 % (30.3-42.9); Hemoglobin 9.6 gm/dl (10.1-14.3)
[2019-08-24] MEDS: NIFEdipine XL 90 MG TAB PO SCH (21:42)
--- NOTE | 2019-08-25 07:44 | Progress Note ---
Assessment and Plan This is a 69 year old lady with Stage 0 left breast cancer, [id number] ER positive. POD#3 left mastectomy wtih SLNB. Patient taken to OR on 08/23/2019 for left chest wall hematoma evaucation. She was transfused 2 units of PRBCs and 2 drains placed. No acute events overnight. 1. Left chest incision healing well, incision clean, dry and intact; no hematoma; nontender. 2. H/H yest am 12/14 and repeat at 1700 9./28 from 01/16 after blood tra nsfusion. PROMISE drains serosanginous this am and output stable. Vital signs stable and good UOP. Resumed home htn meds yesterday. 3. Pain in good control. 4. OOB to hallway. 5. D/C planning for today. Subjective Date of service: 08/25/19 Principal diagnosis: Left breast cancer Interval history: POD#3 left mastectomy wtih SLNB. Patient taken to OR on 08/23/2019 for left chest wall hematoma evaucation. She was transfused 2 units of PRBCs and 2 drains placed. No acute events overnight. Drain output stable. No acute events overnight. Pain in good control. H/H stable. Objective - Constitutional Vitals: Vital Signs - 12hr 20 08/25/19 08/25/19 20:00 00:51 04:15 Temperature 99.4 F 99.5 F 98.9 F Pulse Rate 87 84 86 Respiratory 18 18 16 Rate Blood Pressure 174/60 156/59 171/71 O2 Sat by Pulse 97 96 99 Oximetry 08/25/19 07:00 Temperature 97.7 F Pulse Rate 72 Respiratory 20 Rate Blood Pressure 185/61 O2 Sat by Pulse 100 Oximetry General appearance: Present: no acute distress - EENT Eyes: PERRL, EOM intact ENT: hearing intact, clear oral mucosa Ears: bilateral: normal - Neck Neck: supple, normal ROM - Respiratory Respiratory effort: normal - Breasts Breasts: other (left chest incision c/d/i; skin well perfused; no hematoma; nontender; PROMISE drain to bulb suction with serosanginous output) - Cardiovascular Rhythm: regular Extremities: no ischemia, pulses intact, pulses symmetrical, No edema, normal temperature, normal color, Full ROM - Gastrointestinal General gastrointestinal: Present: soft, non-tender, non-distended Rectal Exam: deferred - Genitourinary Female genitourinary: deferred - Integumentary Integumentary: clear, warm, dry - Musculoskeletal Musculoskeletal: strength equal bilaterally - Neurologic Neurologic: CNII-XII intact, moves all extremities - Psychiatric Psychiatric: appropriate mood/affect, intact judgment & insight, memory intact, cooperative - Labs CBC & Chem 7: 08/24/19 16:48 08/23/19 06:34 Labs: Abnormal lab results 08/24/19 Range/Units 16:48 Hgb 9.6 L (10.1-14.3) gm/dl Hct 28.4 L (30.3-42.9) % Medications & Allergies - Medications Allergies/Adverse Reactions: Allergies sulfamethoxazole [From Bactrim] Allergy (Verified 08/15/19 09:48) Itching trimethoprim [From Bactrim] Allergy (Verified 08/15/19 09:48) Itching Home Medications: Home Medications Medication Instructions Recorded Confirmed Last Taken Type Calcium Carbonate [Calcium 600MG 600 mg PO DAILY 06/08/19 08/15/19 08/21/19 Hist ory TAB] Cyanocobalamin (Vitamin B-12) 500 mcg PO DAILY 06/08/19 08/15/19 08/21/19 History [Vitamin B-12] Ergocalciferol [Vitamin D2] 1 cap PO QWEEK 06/08/19 08/22/19 08/16/19 History Levothyroxine Sodium [Synthroid] 175 mcg PO DAILY 06/08/19 08/15/19 08/22/19 07:00 History NIFEdipine [Adalat cc] 90 mg PO DAILY 06/08/19 08/15/19 08/22/19 07:00 History Pravastatin [Pravachol] 40 mg PO QHS 06/08/19 08/15/19 08/21/19 History Anastrozole [Arimidex] 1 mg PO DAILY 08/15/19 08/15/19 08/21/19 History Active Medications: Generic Name Dose Route Start Last Admin Trade Name Freq PRN Reason Stop Dose Admin Acetaminophen 650 mg 08/22/19 14:59 Tylenol PO Q6H PRN Pain MILD(1-3)/Fever >100.5/BREWER Diphenhydramine HCl 25 mg 08/22/19 14:59 Benadryl PO Q8H PRN Itching Docusate Sodium 100 mg 08/22/19 22:00 08/24/19 21:41 Colace PO 100 mg BID QUIQUE Administration Fentanyl 100 mcg 08/22/19 06:00 08/22/19 10:36 Sublimaze IV 50 mcg ONCE PRN Administration sedation for nerve block Metoclopramide HCl 10 mg 08/22/19 14:59 Reglan PO Q6H PRN Nausea And Vomiting Morphine Sulfate 2 mg 08/22/19 15:05 08/23/19 03:13 Morphine IV 2 mg Q4H PRN Administration Pain, Moderate (4-6) Nifedipine 90 mg 08/24/19 22:00 08/24/19 21:42 Procardia Xl PO 90 mg QDAY QUIQUE Administration Ondansetron HCl 4 mg 08/22/19 14:59 Zofran IV Q8H PRN N/V unrelieved by Reglan Oxycodone/Acetaminophen 2 tab 08/22/19 14:59 Percocet 5/325 PO Q6H PRN Pain, Moderate (4-6) Sodium Chloride 10 ml 08/22/19 14:59 Sodium Chloride Flush Syringe 10 Ml IV PRN PRN LINE FLUSH
[2019-08-25] MEDS: NIFEdipine XL 90 MG TAB PO SCH ×2 (07:45→10:00)
[2019-08-25] MEDS: DOCUSATE SODIUM 100 MG CAP PO SCH ×2 (07:45→10:00)
--- NOTE | 2019-08-25 07:46 | Discharge Summary ---
Providers - Providers Date of Admission: 08/22/19 08:30 Date of discharge: 08/25/19 Attending physician: ZIA GEORGES Primary care physician: HYUN KANG Hospitalization Reason for admission: Left breast cancer Condition: Good Pertinent studies: None Procedures: Left total mastectomy with SLNB on 08/22/2019 and left chest wall evacuation on 08/23/2019 Hospital course: This is a 69 year old lady with Stage 0 left breast cancer, [id number] ER positive. On 08/22/2019 she underwent a left mastectomy wtih SLNB. Patient taken to OR on 08/23/2019 for left chest wall hematoma evaucation. She was transfused 2 units of PRBCs and 2 drains placed. H/H has remained stable and last .09/15 from following transfusion. PROMISE drain output stable and serosanginous and not bloody. Left chest incision c/d/i and no hematoma. Patient ambulating well. Vital signs stable and home meds resumed. Disposition: TO HOME OR SELFCARE - Discharge Diagnoses (1) Breast cancer in female Status: Acute Qualifiers: Breast location: central portion of breast Estrogen receptor status: positive Laterality: left Qualified Code(s): C50.112 - Malignant neoplasm of central portion of left female breast; Z17.0 - Estrogen receptor positive status [ER+] (2) Hypertension Status: Acute Qualifiers: Hypertension type: essential hypertension Qualified Code(s): I10 - Essential (primary) hypertension (3) Diabetes Status: Acute Qualifiers: Diabetes mellitus type: type 2 Diabetes mellitus exterminator termite insulin use: without skilled nursing use Diabetes mellitus complication status: without complication Qualified Code(s): E11.9 - Type 2 diabetes mellitus without complications Core Measure Documentation - Palliative Care Palliative Care/ Comfort Measures: Not Applicable - Core Measures Any of the following diagnoses?: none - VTE Discharge Requirements Deep Vein Thrombosis/Pulmonary Embolism Present on Admission: No Has pt received <5 days of overlap therapy or INR<2.0: No Anticoagulant overlap therapy prescribed at discharge: No Contraindication No Overlap Therapy order at DC: Not Indicated - Acute HI Discharge Requirements Aspirin at discharge: No Reason for no aspirin on DC: Bleeding NICKO/ARB for LVSD if EF <40%: Yes Beta ismael at discharge: No Reason for no beta ismael on DC: Medical contraindication Statin for LDL = or >100 mg/dl on DC: Yes - Heart Failure Discharge Requirements Beta ismael at discharge: No Reason for no beta ismael on DC: Medical contraindication - Stroke Discharge Requirements Anticoag for atrial fib/atrial flutter: Not Applicable Exam - Constitutional Vitals: Temp Pulse Resp BP Pulse Ox 97.7 F 72 20 185/61 100 08/25/19 07:00 08/25/19 07:00 08/25/19 07:00 08/25/19 07:00 08/25/19 07:00 General appearance: Present: no acute distress - EENT Eyes: Present: PERRL, EOM intact ENT: hearing intact, clear oral mucosa - Neck Neck: Present: supple, normal ROM - Respiratory Respiratory effort: normal - Cardiovascular Rhythm: regular - Extremities Extremities: no ischemia, pulses intact, pulses symmetrical, No edema, normal temperature, normal color, Full ROM Peripheral Pulses: within normal limits - Abdominal General gastrointestinal: Present: soft, non-tender, non-distended Female genitourinary: Present: deferred - Rectal Rectal Exam: deferred - Integumentary Integumentary: Present: clear, warm, dry - Musculoskeletal Musculoskeletal: strength equal bilaterally - Psychiatric Psychiatric: appropriate mood/affect, intact judgment & insight, memory intact, cooperative - Neurologic Neurologic: CNII-XII intact, moves all extremities Plan Activity: other (no heavy lifting) Diet: regular Wound: keep clean and dry (wear breast binder) Plan of Treatment: Followup with Dr. Georges 08/30/2019 at 11 AM Follow up with: ZIA GEORGES MD [Staff Physician] - 7 Days HYUN KANG MD [Primary Care Provider] - 7 Days Prescriptions: HYDROcodone/APAP 5-325 [[place] 5/325] 1 each PO Q6HR PRN #20 tablet PRN Reason: Pain
[2019-08-25 11:27] VITALS: BP 175/60
== END 2019-08-25 13:20 | disposition home or self-care (01) | DRG 580 ==
LOC: OR 08:11 → 3B-SURG 14:59 → OBSVTOIN 08-24 08:30
PROVIDERS: ADMIT Surgery; ATTEND Surgery
PROC: 0HTU0ZZ Resection of Left Breast, Open Approach (ICD-10-PCS; 2019-08-22)
PROC: 07B90ZX Excision of Left Internal Mammary Lymphatic, Open Approach, Diagnostic (ICD-10-PCS; 2019-08-22)
PROC: 30233N1 Transfusion of Nonautologous Red Blood Cells into Peripheral Vein, Percutaneous Approach (ICD-10-PCS; principal; 2019-08-23)
PROC: 0W980ZZ Drainage of Chest Wall, Open Approach (ICD-10-PCS; 2019-08-23)
DX: C50.112 Malignant neoplasm of central portion of left female breast (principal); D62 Acute posthemorrhagic anemia; I10 Essential (primary) hypertension; E11.9 Type 2 diabetes mellitus without complications; E03.9 Hypothyroidism, unspecified; E66.9 Obesity, unspecified; Z68.31 Body mass index [BMI] 31.0-31.9, adult; I95.9 Hypotension, unspecified; Z88.2 Allergy status to sulfonamides; Z87.891 Personal history of nicotine dependence; Z17.0 Estrogen receptor positive status [ER+]; S20.212A Contusion of left front wall of thorax, initial encounter; X58.XXXA Exposure to other specified factors, initial encounter; Y93.89 Activity, other specified; Y92.89 Other specified places as the place of occurrence of the external cause; Y99.8 Other external cause status
CPT/HCPCS: 36415; 64450; 78800; 80048; 80053; 82962; 83735; 84100; 85014; 85018; 85025; 86850; 86900; 86901; 86920; 88307; 88331; 88333; 88341; 88342; G0378; A9541; J0330; J0690; J1100; J1170; J2250; J2270; J2370; J2405; J2704; J2710; J3010; J7030; J7120; P9016; Q9968; U0003-CS